=== PATIENT | male | born 1980 | race Two or more races ===

== ENCOUNTER 2017-05-24 07:23 | Emergency (ER) | payer MEDICAID ==
[~2017-05-24] VITALS: Ht 165.1 cm; Wt 93.0 kg
[~2017-05-24 07:23] MED LIST: CYCL-181 PO; DEXA2TAB8 PO; FLUD0.1T2 PO; GEMF600T3 PO; LORA-622 PO; NAPR-607 PO; [UNRECOGNIZED DRUG - CODE] IN
[2017-05-24 07:40] VITALS: BP 108/75
[2017-05-24] MEDS ORDERED: KETOROLAC TROMETH 60MG/2ML VIAL IM ONE (09:00)
== END 2017-05-24 09:25 | disposition home or self-care (01) ==
LOC: ER 07:27
DX: M10.9 Gout, unspecified (principal); J45.909 Unspecified asthma, uncomplicated
CPT/HCPCS: 96372; 99283; J1885

== ENCOUNTER 2017-08-12 15:59 | Emergency (ER) | payer MEDICAID ==
[~2017-08-12] VITALS: Ht 165.1 cm; Wt 93.9 kg
[2017-08-12 17:30] LABS: Basophils # (auto) 0.1 uL; Basophils % (auto) 0.8 % (0.0-2.0); Eosinophils # (auto) 0.2 uL; Eosinophils % (auto) 1.4 % (0.0-7.0); Hematocrit 47.8 % (41.0-53.0); Hemoglobin 16.5 g/dL (13.5-17.5); Lymphocytes % (auto) 23.5 % (10.0-50.0); Mean Corpuscular Hemoglobin 28.3 pg (28.0-32.0); Mean Corpuscular Hgb Conc. 34.5 g/dL (32.0-36.0); Mean Corpuscular Volume 81.9 fL (80.0-100.0); Mean Platelet Volume 7.8 fL (6.9-10.8); Monocytes # (auto) 1.1 uL; Monocytes % (auto) 6.5 % (0.0-12.0); Neutrophils # (auto) 11.6 uL; Neutrophils % (auto) 67.8 % (37.0-80.0); Nucleated Red Blood Cells % 0.1 %; Platelet Count (auto) 340 10^3/uL (140-450); Red Cell Distribution Width 13.4 % (11.8-14.3); White Blood Cell 17.2 10^3/uL (4.4-10.8)
[2017-08-12 17:39] LABS: Albumin 3.8 g/dL (3.4-5.0); Calcium 9.5 mg/dL (8.5-10.1); Potassium 3.7 mmol/L (3.5-5.1)
[2017-08-12 17:41] LABS: BUN/Creatinine Ratio 10.8; Bilirubin, Total 1.1 mg/dL (0.2-1.0)
[2017-08-12 17:43] LABS: Uric Acid 8.6 mg/dL (3.5-7.2)
[2017-08-12] MEDS ORDERED: KETOROLAC TROMETH 30 MG/ML 1ML VIAL IV ONE (19:15)
[2017-08-12] MEDS ORDERED: HYDROcodone-ACET 10/325MG TAB PO ONE (19:15)
[2017-08-12] MEDS ORDERED: ONDANSETRON HCL 4 MG/2 ML VIAL IV ONE (19:30)
[2017-08-12] MEDS ORDERED: ALLOPURINOL 300 MG TAB PO ONE (21:30)
[2017-08-12 21:42] VITALS: BP 105/61
== END 2017-08-12 21:52 | disposition home or self-care (01) ==
LOC: ER 15:59 → EDBD 15:59 → EDSEX 15:59 → ER 21:23
DX: M10.9 Gout, unspecified (principal); J45.909 Unspecified asthma, uncomplicated; Z79.899 Other long term (current) drug therapy; Z90.49 Acquired absence of other specified parts of digestive tract
CPT/HCPCS: 36415; 80053; 84550; 85025; 96374; 96375; 99284; J1885; J2405

== ENCOUNTER 2017-08-17 13:36 | Emergency (ER) | payer MEDICAID ==
[~2017-08-17] VITALS: Ht 165.1 cm; Wt 93.9 kg
[2017-08-17 13:56] VITALS: BP 93/65
[2017-08-17] MEDS ORDERED: KETOROLAC TROMETH 60MG/2ML VIAL IM ONE (15:15)
== END 2017-08-17 15:32 | disposition home or self-care (01) ==
LOC: ER 13:39
DX: M10.9 Gout, unspecified (principal); J45.909 Unspecified asthma, uncomplicated; Z79.899 Other long term (current) drug therapy; Z90.49 Acquired absence of other specified parts of digestive tract
CPT/HCPCS: 96372; 99283; J1885

== ENCOUNTER 2017-09-09 16:52 | Emergency (ER) | payer MEDICAID ==
[~2017-09-09] VITALS: Ht 167.6 cm; Wt 91.2 kg
[~2017-09-09 16:52] MED LIST changes: -NAPR-607 PO; +NAPR500T4 PO
[2017-09-09 18:33] VITALS: BP 129/80
[2017-09-09] MEDS ORDERED: KETOROLAC TROMETH 60MG/2ML VIAL IM ONE (20:45)
[2017-09-09] MEDS ORDERED: methylPREDNISolone SOD SUCC 125 MG/2 ML VL IM ONE (20:45)
== END 2017-09-09 20:50 | disposition home or self-care (01) ==
LOC: ER 16:52
DX: S46.811A Strain of other muscles, fascia and tendons at shoulder and upper arm level, right arm, initial encounter (principal); J45.909 Unspecified asthma, uncomplicated; M10.9 Gout, unspecified; X58.XXXA Exposure to other specified factors, initial encounter; Y93.89 Activity, other specified; Y99.8 Other external cause status; Y92.89 Other specified places as the place of occurrence of the external cause; Z90.89 Acquired absence of other organs
CPT/HCPCS: 72125; 96372; 99284; J1885; J2930

== ENCOUNTER 2017-12-17 12:17 | Emergency (ER) | payer MEDICAID ==
[~2017-12-17] VITALS: Ht 165.1 cm; Wt 98.0 kg
[~2017-12-17 12:17] MED LIST changes: +NAPR500T31 PO; -NAPR500T4 PO
[2017-12-17 13:15] VITALS: BP 124/79
[2017-12-17] MEDS ORDERED: KETOROLAC TROMETH 60MG/2ML VIAL IM ONE (13:45)
== END 2017-12-17 15:31 | disposition home or self-care (01) ==
LOC: ER 12:17
DX: N39.0 Urinary tract infection, site not specified (principal); K76.0 Fatty (change of) liver, not elsewhere classified; M10.9 Gout, unspecified; M54.9 Dorsalgia, unspecified; G89.29 Other chronic pain; J45.909 Unspecified asthma, uncomplicated; Z83.3 Family history of diabetes mellitus; Z79.899 Other long term (current) drug therapy; Z90.49 Acquired absence of other specified parts of digestive tract
CPT/HCPCS: 74176; 96372; 99284; J1885

== ENCOUNTER 2018-05-03 11:43 | Emergency (ER) | payer MEDICAID, OTHER ==
[~2018-05-03] VITALS: Ht 165.1 cm; Wt 94.3 kg
[2018-05-03 12:01] VITALS: BP 112/71
== END 2018-05-03 13:06 | disposition home or self-care (01) ==
LOC: ER 11:43
DX: J45.909 Unspecified asthma, uncomplicated (principal); M10.9 Gout, unspecified; Z79.899 Other long term (current) drug therapy; Z76.0 Encounter for issue of repeat prescription

== ENCOUNTER 2018-11-23 01:31 | Emergency (ER) | payer MEDICAID ==
[~2018-11-23] VITALS: Ht 165.1 cm; Wt 94.3 kg
[~2018-11-23 01:31] MED LIST changes: -GEMF600T3 PO; +GEMF600T7 PO
[2018-11-23 04:19] VITALS: BP 111/61
[2018-11-23] MEDS ORDERED: cefTRIAXone SOD 1,000 MG VL ONE (04:22)
[2018-11-23] MEDS ORDERED: HYDROcodone-ACET 10/325MG TAB ONE (04:23)
[2018-11-23] MEDS ORDERED: HYDROcodone-ACET 10/325MG TAB PO ONE (04:30)
[2018-11-23] MEDS ORDERED: cefTRIAXone W LIDOCAINE 1 GM IM IM ONE (04:30)
== END 2018-11-23 05:36 | disposition home or self-care (01) ==
LOC: ER 01:31
DX: S63.075A Dislocation of distal end of left ulna, initial encounter (principal); J45.909 Unspecified asthma, uncomplicated; M10.9 Gout, unspecified; X58.XXXA Exposure to other specified factors, initial encounter; Y93.89 Activity, other specified; Y99.8 Other external cause status; Y92.89 Other specified places as the place of occurrence of the external cause
CPT/HCPCS: 29125; 73100; 96372; 99283; J0696